=== PATIENT | female | born 1990 | race Caucasian/White ===

== ENCOUNTER 2016-08-24 10:08 | Emergency (ER) | payer OTHER ==
[~2016-08-24] VITALS: Ht 188 cm; Wt 84.0 kg
[2016-08-24 10:08] VITALS: BP 139/84; PULSE 115; RESP 16; TEMP 98.3; O2SAT 98
--- NOTE | 2016-08-24 10:11 | PD ---
HPI Chief Complaint: seizure Time Seen by Provider: 10:11 Travel History International Travel<30 days: No Contact w/Intl Traveler<30days: No Traveled to known affect area: No History of Present Illness HPI 26-year-old female came to the emergency with history of seizure today while she was at her class. She was brought in by EMS. Patient says she has history of seizures as a child but did not have any seizures were more than 10 years up until today. She was awake and answering questions appropriately. No history of tongue bite or. No incontinence. She is otherwise a normal healthy person. Patient says that she drank a lot last night and was a little hung over this morning. Denied any drug abuse. She denies any head injury or headache. She has normal vital signs. [facility]LY [facility] Past Medical History Narrative Medical Most of her past medical, surgical, social and family history as reviewed from the nursing note. Social History Alcohol Use: Yes (occasional) Tobacco Use: No Allergies-Medications (Allergen,Severity, Reaction): Coded Allergies: No Known Allergies (Unverified , 08/24/16) Comments No known drug allergies. Reported Meds & Prescriptions Reported Meds & Active Scripts Active Keppra (Levetiracetam) 500 Mg Tab 500 Mg PO BID Narrative Medication List of medications reviewed from the nursing note. Review of Systems Except as stated in HPI: all other systems reviewed are Neg Physical Exam Narrative GENERAL: Awake, alert, no obvious distress SKIN: Warm and dry. HEAD: Atraumatic. Normocephalic. EYES: Pupils equal and round. No scleral icterus. No injection or drainage. ENT: No nasal bleeding or discharge. Mucous membranes pink and moist. NECK: Trachea midline. No JVD. CARDIOVASCULAR: Regular rate and rhythm. No murmur appreciated. RESPIRATORY: No accessory muscle use. Clear to auscultation. Breath sounds equal bilaterally. GASTROINTESTINAL: Abdomen soft, non-tender, nondistended. Hepatic and splenic margins not palpable. MUSCULOSKELETAL: No obvious deformities. No clubbing. No cyanosis. No edema. NEUROLOGICAL: Awake and alert. No obvious cranial nerve deficits. Motor grossly within normal limits. Normal speech. PSYCHIATRIC: Appropriate mood and affect; insight and judgment normal. Data Data Last Documented VS Vital Signs Date Time Temp Pulse Resp B/P Pulse Ox O2 Delivery O2 Flow Rate FiO2 08/24/16 13:00 52 18 122/64 98 Room Air 08/24/16 10:08 98.3 Orders Complete Blood Count With Diff (08/24/16 10:11) Basic Metabolic Panel (Bmp) (08/24/16 10:11) Blood Glucose (08/24/16 10:11) Ecg Monitoring (08/24/16 10:11) Iv Access Insert/Monitor (08/24/16 10:11) Oximetry (08/24/16 10:11) Sodium Chloride 0.9% Flush (Ns Flush) (08/24/16 10:15) Levetiracetam 1000 Mg Inj (Keppra 1000 M (08/24/16 10:15) Ondansetron Inj (Zofran Inj) (08/24/16 11:00) Ondansetron Inj (Zofran Inj) (08/24/16 11:00) Metoclopramide Inj (Reglan Inj) (08/24/16 12:00) Ct Brain W/O Iv Contrast(Rout) (08/24/16 ) Labs Laboratory Tests Test 08/24/16 10:25 White Blood Count 7.2 TH/MM3 Red Blood Count 4.55 MIL/MM3 Hemoglobin 13.4 GM/DL Hematocrit 38.8 % Mean Corpuscular Volume 85.2 FL Mean Corpuscular Hemoglobin 29.5 PG Mean Corpuscular Hemoglobin 34.6 % Concent Red Cell Distribution Width 12.9 % Platelet Count 205 TH/MM3 Mean Platelet Volume 8.3 FL Neutrophils (%) (Auto) 81.4 % Lymphocytes (%) (Auto) 12.1 % Monocytes (%) (Auto) 5.1 % Eosinophils (%) (Auto) 1.0 % Basophils (%) (Auto) 0.4 % Neutrophils # (Auto) 5.8 TH/MM3 Lymphocytes # (Auto) 0.9 TH/MM3 Monocytes # (Auto) 0.4 TH/MM3 Eosinophils # (Auto) 0.1 TH/MM3 Basophils # (Auto) 0.0 TH/MM3 CBC Comment DIFF FINAL Differential Comment Sodium Level 142 MEQ/L Potassium Level 4.2 MEQ/L Chloride Level 109 MEQ/L Carbon Dioxide Level 25.1 MEQ/L Anion Gap 8 MEQ/L Blood Urea Nitrogen 11 MG/DL Creatinine 0.85 MG/DL Estimat Glomerular Filtration 82 ML/MIN Rate Random Glucose 81 MG/DL Calcium Level 8.2 MG/DL MDM Medical Decision Making Medical Screen Exam Complete: Yes Emergency Medical Condition: Yes Medical Record Reviewed: Yes Differential Diagnosis Seizure disorder Narrative Course 1:15 PM all the blood test results are back and they are within normal limits. However patient vomited 3 times since being here and I have ordered a head CT. I did give her a gram of Keppra and 1 L of IV fluid bolus. She received Zofran 2 and Reglan. Awaiting for the CT of the head to be done and resulted. Procedures EKG Prior to Arrival: No Diagnosis Primary Impression: Seizure Additional Impression: Vomiting Qualified Code: R11.2 - Non-intractable vomiting with nausea, unspecified vomiting type Referrals: Ravinder Faith MD 2 days Additional Instructions: Please return to the ER if the condition worsens or any other new concerns. Please follow-up with the neurologist was name and number been provided to you. Do not drive until you have been cleared by the neurologist. Take the medications as per the prescription direction. Med/Other Pt SpecificInfo: Prescription(s) given Scripts Levetiracetam (Keppra)500 Mg Nui544 Mg PO BID #60 TAB Ref 0 Prov:Brooklynn Luz MD 08/24/16 Disposition: 01 DISCHARGE HOME Condition: Stable Brooklynn Luz MD Aug 24, 2016 10:11
[2016-08-24] MEDS ORDERED: SODIUM CHLORIDE 0.9% FLUSH 5 ML FLUSH IVF PRN (10:15)
[2016-08-24] MEDS ORDERED: levETIRAcetam 1000 MG INJ 100 ML IV ONE (10:15)
[2016-08-24 10:17] VITALS: RESP 16; O2SAT 97
[2016-08-24 10:38] LABS: AUTOMATED NEUTROPHIL # 5.8 TH/MM3 (1.8-7.7); BASOPHIL % 0.4 % (0.0-2.0); EOSINOPHIL # 0.1 TH/MM3 (0-0.4); HEMATOCRIT 38.8 % (35.0-46.0); HEMO FLAGS DIFF FINAL; LYMPH % 12.1 % (9.0-44.0); LYMPHOCYTE # 0.9 TH/MM3 (1.0-4.8); MEAN CELL VOLUME 85.2 FL (80.0-100.0); MEAN CORPUSCULAR HEMOGLOBIN 29.5 PG (27.0-34.0); MEAN CORPUSCULAR HGB CONC 34.6 % (32.0-36.0); MONO % 5.1 % (0.0-8.0); NEUT % 81.4 % (16.0-70.0); PLATELET COUNT 205 TH/MM3 (150-450); RED BLOOD COUNT 4.55 MIL/MM3 (4.00-5.30); RED CELL DISTRIBUTION WIDTH 12.9 % (11.6-17.2); WHITE BLOOD COUNT 7.2 TH/MM3 (4.0-11.0)
[2016-08-24 10:53] LABS: BICARBONATE 25.1 MEQ/L (21.0-32.0); POTASSIUM 4.2 MEQ/L (3.5-5.1)
[2016-08-24] MEDS ORDERED: ONDANSETRON HCL 4 MG/2 ML VIAL IV PUSH ONE (11:00)
[2016-08-24] MEDS ORDERED: ONDANSETRON HCL 4 MG/2 ML VIAL ONE (11:00)
[2016-08-24 12:00] VITALS: BP 139/92; PULSE 58; RESP 16; O2SAT 98
[2016-08-24] MEDS ORDERED: METOCLOPRAMIDE HCL 10 MG/2 ML VIAL IV PUSH ONE (12:00)
[2016-08-24 13:00] VITALS: BP 122/64; PULSE 52; RESP 18; O2SAT 98
[2016-08-24] MEDS ORDERED: LEVE500 PO (14:09)
--- NOTE | 2016-08-24 14:12 | RADRPT ---
EXAM DATE/TIME: 08/24/2016 13:47 [place] COMPARISON: No previous studies available for comparison. INDICATIONS : Seizure. RADIATION DOSE: 46.87 CTDIvol (mGy) MEDICAL HISTORY : Seizures. SURGICAL HISTORY : None. ENCOUNTER: Initial ACUITY: 1 day PAIN SCALE: 0/10 LOCATION: cranial TECHNIQUE: Multiple contiguous axial images were obtained of the head. Using automated exposure control and adj ustment of the mA and/or kV according to patient size, radiation dose was kept as low as reasonably a chievable to obtain optimal diagnostic quality images. FINDINGS: CEREBRUM: The ventricles are normal for age. No evidence of midline shift, mass lesion, hemorrhage or acute in farction. No extra-axial fluid collections are seen. POSTERIOR FOSSA: The cerebellum and brainstem are intact. The 4th ventricle is midline. The cerebellopontine angle i s unremarkable. EXTRACRANIAL: The visualized portion of the orbits is intact. SKULL: The calvaria is intact. No evidence of skull fracture. CONCLUSION: No acute disease. Wagner Bermudez MD on August 24, 2016 at 14:10 Board Certified Radiologist. This report was verified electronically.
== END 2016-08-24 14:35 | disposition home or self-care (01) ==
LOC: NEPE 10:08
DX: G40.909 Epilepsy, unspecified, not intractable, without status epilepticus (principal); R11.10 Vomiting, unspecified
CPT/HCPCS: 70450; 80048; 85025; 96365; 96375; 99284; J1953; J2405; J2765